=== PATIENT | male | born 1990 | race Two or more races ===

== ENCOUNTER 2025-07-02 17:20 | Emergency (ER) | payer OTHER ==
[~2025-07-02] VITALS: Ht 175.3 cm; Wt 98.0 kg
[2025-07-02 18:12] LABS: PLATELET COUNT (AUTO) 199 K/uL (150-450); RED BLOOD CELL COUNT(AUTO) 5.05 MIL/uL (4.50-5.90); RED CELL DISTRIBUTION WIDTH 13.0 % (11.5-14.5); WHITE BLOOD COUNT (AUTO) 9.0 K/uL (4.5-11.0)
[2025-07-02 18:19] LABS: CALCIUM, TOTAL 9.2 mg/dL (8.8-10.5); CREATININE 0.96 mg/dL (0.60-1.30); GLOMERULAR FILTR. RATE CALC > 60 mL/min (>60); GLUCOSE,RANDOM 113 mg/dL (70-110); SODIUM SERUM 139 mmol/L (136-145); UREA NITROGEN, BLOOD 18 mg/dL (7-18)
[2025-07-02 18:39] LABS: ASPARTATE AMINOTRANSFERASE 17.0 U/L (15-37); TOTAL PROTEIN, SERUM 8.3 g/dL (6.4-8.2)
[2025-07-02] MEDS: POLYETHYLENE GLYCOL 3350 17 GM PACKET PO ONE (18:46)
[2025-07-02 19:15] VITALS: BP 132/75; PULSE 84; RESP 16; TEMP 97.3; O2SAT 98
[2025-07-02] MEDS ORDERED: POLY17PO47 PO (19:24)
== END 2025-07-02 20:37 | disposition home or self-care (01) ==
LOC: EMS 17:20
DX: K59.00 Constipation, unspecified (principal); R10.31 Right lower quadrant pain; Z86.0100 Personal history of colon polyps, unspecified
CPT/HCPCS: 74018; 80048; 80076; 85025; 99284; 36415-L1; 36415-TC

== ENCOUNTER 2025-07-27 12:55 | Emergency (ER) | payer OTHER ==
[~2025-07-27] VITALS: Ht 172.7 cm; Wt 95.5 kg
[~2025-07-27 12:55] MED LIST: POLY17PO47 PO
[2025-07-27 13:00] VITALS: BP 125/85; PULSE 98; RESP 18; TEMP 98.5; O2SAT 98
[2025-07-27] MEDS ORDERED: TRAZ-252 PO (13:04)
[2025-07-27] MEDS: KETOROLAC TROMETHAMINE 30 MG/ML VIAL IM ONE (13:50)
[2025-07-27] MEDS: LIDOCAINE 5% TRANSDERMAL PATCH TD ONE (13:51)
[2025-07-27] MEDS ORDERED: ACET-2247 PO (13:58)
[2025-07-27] MEDS ORDERED: IBUP-1492 PO (13:58)
[2025-07-27] MEDS ORDERED: LIDO-57 TP (13:58)
== END 2025-07-27 14:06 | disposition home or self-care (01) ==
LOC: EMS 12:57
DX: G89.29 Other chronic pain (principal); M54.50 Low back pain, unspecified; Z79.899 Other long term (current) drug therapy; Z76.0 Encounter for issue of repeat prescription
CPT/HCPCS: 99283; 96372; J1885

== ENCOUNTER 2025-08-14 08:24 | Emergency (ER) | payer OTHER, MEDICAID ==
[~2025-08-14] VITALS: Ht 175.3 cm; Wt 96.4 kg
[~2025-08-14 08:24] MED LIST changes: +ACET-2247 PO; +IBUP-1492 PO; +LIDO-57 TP; +TRAZ-252 PO
[2025-08-14 08:36] VITALS: BP 120/80; PULSE 66; RESP 16; TEMP 98.2; O2SAT 96
[2025-08-14] MEDS ORDERED: LIDO-57 TP (08:37)
[2025-08-14] MEDS ORDERED: IBUP-1492 PO (08:37)
[2025-08-14] MEDS ORDERED: METH-659 PO (09:07)
== END 2025-08-14 09:20 | disposition home or self-care (01) ==
LOC: EMS 08:24
DX: M54.50 Low back pain, unspecified (principal)
CPT/HCPCS: 99283; Z7502